=== PATIENT | male | born 1935 | race Caucasian/White ===

== ENCOUNTER → 2018-09-16 | Outpatient (CLI) | payer MEDICARE, OTHER ==
[~2018-09-16] MED LIST: ATEN50TA PO; CANNOT REMEMBER MEDS; VICOT
== END | disposition home or self-care (01) ==
LOC: RADPV 10:36
PROVIDERS: ATTEND Specialist
DX: M19.031 Primary osteoarthritis, right wrist (principal)

== ENCOUNTER → 2022-05-28 | Outpatient (CLI) | payer MEDICARE, OTHER ==
[~2022-05-28] MED LIST changes: +ATEN-72 PO; -ATEN50TA PO
== END | disposition home or self-care (01) ==
LOC: EEVIPCON 12:20 → RADMN 12:20
PROVIDERS: ATTEND Family Medicine
DX: M19.012 Primary osteoarthritis, left shoulder (principal); M47.814 Spondylosis without myelopathy or radiculopathy, thoracic region; M41.84 Other forms of scoliosis, thoracic region; M25.512 Pain in left shoulder; R05.9 Cough, unspecified
CPT/HCPCS: 71046